=== PATIENT | male | born 1980 | race Caucasian/White ===

== ENCOUNTER → 2017-04-03 | Outpatient (CLI) | payer BC ==
--- NOTE | 2017-04-03 17:02 | US ---
EXAMINATION TYPE: US scrotum with doppler. Grayscale and color Doppler Duplex imaging performed of t silvio scrotum. DATE OF EXAM: 04/03/2017 COMPARISON: NONE CLINICAL HISTORY: N50.811 TESTICULAR PAIN RT. EXAM MEASUREMENTS: TESTICLES: Right Testicle: 4.3 x 2.5 x 2.6 cm Left Testicle: 4.1 x 2.3 x 3.1 cm EPIDIDYMIS HEAD: Right Epididymis: 0.6 cm Left Epididymis: 1.2 cm Doppler performed to assess for testicular vascularity; good bilateral color flow and waveforms are s een. There is no evidence of testicular torsion. Presence of hydroceles: free fluid lateral to testicle bilaterally Presence of varicoceles: no Lymph node right inguinal canal IMPRESSION: No testicular torsion or mass. Small bilateral hydroceles.
== END ==
LOC: RADUSWWP 16:01
PROVIDERS: ATTEND Internal Medicine
DX: N43.3 Hydrocele, unspecified (principal)
CPT/HCPCS: 76870; 93975